=== PATIENT | male | born 1955 | race African-American/Black ===

== ENCOUNTER 2017-06-11 07:31 | Outpatient (CLI) | payer BC ==
--- NOTE | 2017-06-11 09:49 | Ultrasound Report ---
SCROTAL DUPLEX: 06/11/2017 CLINICAL INDICATION: Left inguinal hernia repair, palpable abnormality, pain. TECHNIQUE: Real-time scanning was performed with customer operations representative static images obtained. FINDINGS: The right testicle measured 3.9 x 3.2 x 2.4 cm. A small right hydrocele is noted. Small right epididymal cysts are present. The left testicle measures 4.3 x 3.2 x 2.2 cm. A small left hydrocele is present. Left epididymis is unremarkable. Both testicles demonstrate normal echotexture and vascular flow. There is a left inguinal hernia present, with hernia neck measuring 1.4 cm. It demonstrates fat within the hernia sac. No bowel herniation is appreciated. IMPRESSION: 1. INCIDENTAL RIGHT EPIDIDYMAL CYSTS. 2. LEFT INGUINAL HERNIA, CONTAINING FAT. NO EVIDENCE OF BOWEL HERNIATION AT THIS TIME. TD: 06/11/2017 09:49
== END 2017-06-11 07:32 | disposition home or self-care (01) ==
LOC: DI 07:31
PROVIDERS: ATTEND Internal Medicine
DX: K40.90 Unilateral inguinal hernia, without obstruction or gangrene, not specified as recurrent (principal)
CPT/HCPCS: 76870

== ENCOUNTER 2018-05-12 12:28 | Emergency (ER) | payer BC ==
--- NOTE | 2018-05-12 16:45 | ED Physician Documentation ---
History of Present Illness - Stated complaint Stated Complaint: HAND LAC - Chief complaint Chief Complaint: Laceration - History obtained from History obtained from: Patient - Additonal information Additional information: Patient is a previously healthy, left-handed 62-year-old male presenting with laceration to the dorsum of his right hand that occurred accidentally earlier this morning at approximately 11:30 AM. Patient reports he was helping another with their car and the [place] edge accidentally cut his hand. Patient denies other injuries, but admits to slight bleeding, swelling, and pain. Patient denies decreased range of motion, strength, or sensation to this area. No other injuries noted. No other complaints and patient in his usual state of health. There are no improving or worsening factors to his complaints. Tetanus up-to-date. Review of Systems Skin: reports: Laceration (s) Musculoskeletal: reports: Extremity pain Neurologic: denies: Numbness PD PAST MEDICAL HISTORY - Past Medical History Past Medical History: No Cardiovascular: High cholesterol - Past Surgical History Past Surgical History: No - Allergies Allergies/Adverse Reactions: Allergies Allergy/AdvReac Type Severity Reaction Status Date / Time No Known Drug Allergies Allergy Verified 05/12/18 13:35 - Social History Does the pt smoke?: No Smoking Status: Never smoker Does the pt drink ETOH?: No Does the pt have substance abuse?: No PD ED PE NORMAL - General General: Alert and oriented X 3, No acute distress, Well developed/nourished - Cardiac Cardiac: Strong equal pulses (Capillary refill brisk) - Respiratory Respiratory: No respiratory distress - Derm Derm: Normal color, Warm and dry, No rash, Other (Approximately 1 inch irregular laceration, superficial, to the dorsum of the left hand directly underneath the third and fourth digits without extension into the joint. No evidence of retained foreign body, infection, abnormal drainage, or damage to underlying structures. Some bleeding present.) - Extremities Extremities: No deformity, No tenderness to palpate - Neuro Neuro: Alert and oriented X 3, No motor deficit, No sensory deficit - Psych Psych: Normal mood, Normal affect Results - Vitals Vitals: Vital Signs - 24 hr 05/12/18 13:32 Temperature 36.4 C L Heart Rate 88 Respiratory 16 Rate Blood Pressure 145/88 H O2 Saturation 96 Oxygen O2 Source Room air Procedures - Laceration (location) Hand right Length in cm: 1 Wound type: Irregular Neurovascular status: Sensory intact, Motor intact, Vascular intact Tendon involvement: Tendon intact Anesthesia: Lidocaine 1% with epi Deep layer closure: size #-0 - enter number (5-0 five sutures placed) Skin layer closure: Dermabond Other: Patient tolerated well, No complications, Neurovascular intact, Dressing applied, Tetanus UTD PD MEDICAL DECISION MAKING - ED course Complexity details: considered differential, d/w patient ED course: Patient has an uncomplicated laceration to the left hand that is repaired with stitches and Dermabond. No tendon involvement or damage to underlying structures noted. Do not have high suspicion for fracture, retained foreign body, infection, or other complication. Discussed appropriate wound care, return precautions, suture removal, as well as appropriate follow-up. Patient voiced understanding and is comfortable with discharge plan. Tentanus current and did not require updating. Departure - Departure Disposition: 01 Home, Self Care Clinical Impression: Laceration Condition: Good Instructions: ED Laceration All Follow-Up: José Miguel King MD [Primary Care Provider] - Comments: Please keep wound clean and dry, using running water and soap only to clean. Do not submerge underwater. Please be gentle with your hand over the next several days to avoid infection and reopening of wound. Please return to ED, urgent care, your primary care physician in next 10-14 days for suture removal. Glue will come off on its own. Return to ED sooner if experience signs of infection, opening of wound, worsening pain, or other concerns.
[2018-05-12] MEDS ORDERED: LIDOCAINE 1%-EPI 1:100000 30 ML MDV SUBQ STA (16:56)
[2018-05-12 17:29] VITALS: BP 147/88
== END 2018-05-12 17:31 | disposition home or self-care (01) ==
LOC: ED 12:28
DX: S61.411A Laceration without foreign body of right hand, initial encounter (principal); W45.8XXA Other foreign body or object entering through skin, initial encounter; E78.00 Pure hypercholesterolemia, unspecified
CPT/HCPCS: 12001; 99283

== ENCOUNTER 2018-10-13 07:54 | Outpatient (CLI) | payer BC ==
--- NOTE | 2018-10-13 15:48 | Ultrasound Report ---
Reason: ABDOMINAL AORTIC ANEURYSM SCREENING Procedure Date: 10/13/2018 Accession Number: [id number] / [id number] Procedure: US - Aorta Screening CPT Code: FULL RESULT: EXAM: AORTIC DOPPLER ULTRASOUND EXAM DATE: 10/13/2018 08:40 AM. CLINICAL HISTORY: Abdominal aortic aneurysm screening. COMPARISON: None. TECHNIQUE: Real-time sonographic imaging of retroperitoneal vascular structures, including color-flow, Doppler flow and spectral analysis was performed by the boat cleaning supervisor. Multiple market survey representative static images were saved for review. FINDINGS: Aorta: The abdominal aorta was adequately visualized. No evidence for abdominal aortic aneurysm. Aorta: Proximal: Sagittal AP 2.7 cm. Mid: Transverse 2.0 x 1.9 cm. Distal: Transverse 1.8 x 1.7 cm. Caliber: WNL: Yes. Iliacs: Right Iliac: Transverse 1.1 x 1.3 cm. Left Iliac: Transverse 1.2 x 1.4 cm. Iliac Vessels: The visualized proximal common iliac arteries are normal in caliber. Other: None. IMPRESSION: Normal. No abdominal aortic aneurysm. [facility]
== END 2018-10-13 07:55 | disposition home or self-care (01) ==
LOC: DI 07:54
PROVIDERS: ATTEND Internal Medicine
DX: Z13.6 Encounter for screening for cardiovascular disorders (principal)
CPT/HCPCS: 76706

== ENCOUNTER 2021-10-30 07:47 | Outpatient (CLI) | payer MEDICARE, BC | END 2021-10-30 07:48 | disposition home or self-care (01) | LOC: LAB 07:47 | PROVIDERS: ATTEND Internal Medicine Gastroenterology | DX: R79.0 Abnormal level of blood mineral (principal); Z20.822 Contact with and (suspected) exposure to COVID-19 ==